=== PATIENT | male | born 1955 | race Caucasian/White ===

== ENCOUNTER 2021-09-14 16:53 | Inpatient (IN) | payer BC ==
[~2021-09-14] VITALS: Ht 160 cm; Wt 69.4 kg
[2021-09-14] MEDS: NACL 0.9% 1,000 ML IV SCH (02:00)
[2021-09-14 17:14] VITALS: BP_SYST 118
[2021-09-14 18:29] LABS: HEMATOCRIT 27.4 % (36-54); MEAN CORPUSCULAR HEMOGLOBIN 27 pg (27-31); MEAN CORPUSCULAR HGB CONC 33 % (32-36); MEAN CORPUSCULAR VOLUME 81 fL (79.0-98.0); PLATELET COUNT (AUTO) 513 K/uL (130-430); RED BLOOD CELL COUNT(AUTO) 3.39 MIL/uL (4.2-6.2); RED CELL DISTRIBUTION WIDTH 19.9 % (9.0-15.0); WHITE BLOOD COUNT (AUTO) 17.9 K/uL (4.8-10.8)
[2021-09-14 18:38] LABS: ANION GAP 9 (5-15); CALCIUM 8.2 mg/dL (8.4-11.0); CHLORIDE 96 mmol/L (98-107); CREATININE 0.83 mg/dL (0.55-1.30); GLUCOSE 134 mg/dL (70-99); SODIUM SERUM 132 mmol/L (136-145); UREA NITROGEN, BLOOD 15 mg/dL (8-21)
[2021-09-14 18:50] LABS: ALANINE AMINOTRANSFERASE 37 U/L (12-78); ALBUMIN 1.2 g/dL (3.4-4.8); ASPARTATE AMINOTRANSFERASE 50 U/L (10-37)
[2021-09-14 18:53] LABS: GFR AFRICAN AMERICAN 120 mL/min (>90)
[2021-09-14 19:16] LABS: BILIRUBIN,URINE NEGATIVE (NEGATIVE); BLOOD, URINE 1+ (NEGATIVE); COLOR,URINE YELLOW (YELLOW); GLUCOSE,URINE NEGATIVE (NEGATIVE); KETONES,URINE NEGATIVE (NEGATIVE); LEUKOCYTE ESTERASE ,URINE 1+ (NEGATIVE); NITRITE, URINE NEGATIVE (NEGATIVE); PROTEIN URINE NEGATIVE (NEGATIVE); UROBILINOGEN,URINE 0.2 (0.2-1.0)
[2021-09-14 19:18] LABS: CLARITY/URINE HAZY (CLEAR)
[2021-09-14 19:26] LABS: BACTERIA,URINE FEW /HPF (None Seen); RBC,URINE 0-3 /HPF (0-3)
[2021-09-14] MEDS ORDERED: PIPERACILLIN/TAZO 3.375 GM in NS 50 ML IV ONE ×2 (19:30→21:00)
[2021-09-14] MEDS ORDERED: KCL 20 mEq in 100 mL (PREMIX) 100 ML IV ONE (19:30)
[2021-09-14 19:35] LABS: TOTAL BILIRUBIN 0.3 mg/dL (0.0-1.0)
[2021-09-14] MEDS ORDERED: PIPERACILLIN/TAZOBACTAM 3.375 GM/VIAL (ZOSYN) IV ONE ×2 (19:57→19:59)
[2021-09-14] MEDS ORDERED: NACL 0.9% 1,000 ML IV ONE ×2 (20:30)
[2021-09-14] MEDS ORDERED: fentaNYL CITRATE/PF 100 MCG/2 ML AMP IVP ONE (20:45)
[2021-09-14 21:43] LABS: INR 1.1 (0.80-1.20); PROTHROMBIN TIME 11.5 SECS (9.5-12.5)
[2021-09-14] MEDS: D5/0.45 NS 1,000 ML IV SCH (22:10)
[2021-09-14 22:36] VITALS: BP_SYST 110
[2021-09-14 22:55] VITALS: BP_SYST 110
[2021-09-14 23:16] LABS: BAND % (MANUAL) 25 % (0-6); BASOPHILS % (MANUAL) 0 % (0-2); EOSINOPHILS % (MANUAL) 0 % (0-7); LYMPHOCYTES % (MANUAL) 1 % (20-46); MONOCYTES % (MANUAL) 2 % (0-11)
[2021-09-15] MEDS ORDERED: PIPERACILLIN/TAZO 3.375 GM in NS 50 ML IV SCH ×2
[2021-09-15] MEDS ORDERED: TRAM50TA2 PO (00:12)
[2021-09-15] MEDS ORDERED: HYDR-3927 PO (00:12)
[2021-09-15] MEDS: D5/0.45 NS 1,000 ML IV SCH (00:14)
[2021-09-15 00:17] VITALS: BP_SYST 127
[2021-09-15] MEDS ORDERED: DEXTROSE 50% JECT 50 ML DISP.SYRIN IVP PRN (02:45)
[2021-09-15] MEDS ORDERED: PIPERACILLIN/TAZOBACTAM 3.375 GM/VIAL (ZOSYN) IV ONE (02:51)
[2021-09-15 04:18] VITALS: BP_SYST 131
[2021-09-15] MEDS: NACL 0.9% 1,000 ML IV SCH ×2 (07:00→17:09)
[2021-09-15 07:10] LABS: BASOPHILS # (AUTO) 0.1 K/uL (0.0-0.2); BASOPHILS % (AUTO) 0.5 % (0.0-2.0); EOSINOPHILS % (AUTO) 0.1 % (0.0-4.0); HEMATOCRIT 29.1 % (36-54); HEMOGLOBIN 9.3 g/dL (14.0-18.0); LYMPHOCYTES # (AUTO) 0.6 K/uL (1.0-5.5); MEAN CORPUSCULAR HEMOGLOBIN 26 pg (27-31); MEAN CORPUSCULAR HGB CONC 32 % (32-36); MEAN CORPUSCULAR VOLUME 82 fL (79.0-98.0); MONOCYTES # (AUTO) 0.8 K/uL (0.0-1.0); NEUTROPHILS # (AUTO) 14.1 K/uL (1.8-7.7); NEUTROPHILS % (AUTO) 90.4 % (40.0-70.0); PLATELET COUNT (AUTO) 494 K/uL (130-430); RED BLOOD CELL COUNT(AUTO) 3.56 MIL/uL (4.2-6.2); RED CELL DISTRIBUTION WIDTH 21.3 % (9.0-15.0); WHITE BLOOD COUNT (AUTO) 15.6 K/uL (4.8-10.8)
[2021-09-15 07:55] VITALS: BP_SYST 121
[2021-09-15] MEDS: HYDROcodone/ACETAMIN 10-325 MG TAB PO PRN ×3 (08:12→23:14)
[2021-09-15 08:13] LABS: ALBUMIN 1.2 g/dL (3.4-4.8); CALCIUM 8.2 mg/dL (8.4-11.0); CREATININE 0.87 mg/dL (0.55-1.30); POTASSIUM 3.3 mmol/L (3.5-5.1); TOTAL BILIRUBIN 0.4 mg/dL (0.0-1.0)
[2021-09-15] MEDS: PIPERACILLIN/TAZO 3.375 GM in NS 50 ML IV SCH ×3 (08:14→20:58)
[2021-09-15 12:00] VITALS: BP_SYST 115
[2021-09-15] MEDS: INSULIN REGULAR, HUMAN 100 UNITS/ML, 10 ML VIAL (humuLIN R) SUBCUT PRN (12:21)
[2021-09-15 17:45] VITALS: BP_SYST 126
[2021-09-15 20:00] VITALS: BP_SYST 132
[2021-09-15 22:16] LABS: BILIRUBIN,URINE NEGATIVE (NEGATIVE); BLOOD, URINE 1+ (NEGATIVE); CLARITY/URINE SL CLOUDY (CLEAR); COLOR,URINE YELLOW (YELLOW); GLUCOSE,URINE NEGATIVE (NEGATIVE); KETONES,URINE NEGATIVE (NEGATIVE); LEUKOCYTE ESTERASE ,URINE 1+ (NEGATIVE); NITRITE, URINE NEGATIVE (NEGATIVE); PH,URINE 5.5 (5.0-8.0); PROTEIN URINE TRACE (NEGATIVE); UROBILINOGEN,URINE 0.2 (0.2-1.0)
[2021-09-15 22:23] LABS: BACTERIA,URINE FEW /HPF (None Seen)
[2021-09-16 00:37] VITALS: BP_SYST 136
[2021-09-16] MEDS: traMADol HCL HCL 50 MG TABLET (ULTRAM) PO PRN ×2 (02:24→23:56)
[2021-09-16] MEDS: NACL 0.9% 1,000 ML IV SCH ×2 (02:25→17:08)
[2021-09-16] MEDS: PIPERACILLIN/TAZO 3.375 GM in NS 50 ML IV SCH ×4 (02:31→21:52)
[2021-09-16 08:00] VITALS: BP_SYST 130
[2021-09-16] MEDS: HYDROcodone/ACETAMIN 10-325 MG TAB PO PRN ×2 (08:24→17:41)
[2021-09-16 08:29] LABS: ALBUMIN 1.2 g/dL (3.4-4.8); CALCIUM 7.4 mg/dL (8.4-11.0); CREATININE 0.92 mg/dL (0.55-1.30); POTASSIUM 3.8 mmol/L (3.5-5.1); TOTAL BILIRUBIN 0.5 mg/dL (0.0-1.0)
[2021-09-16] MEDS: ENOXAPARIN SODIUM 40 MG/0.4 ML SYRINGE SUBCUT SCH (08:29)
[2021-09-16 08:59] LABS: BASOPHILS # (AUTO) 0.1 K/uL (0.0-0.2); BASOPHILS % (AUTO) 0.3 % (0.0-2.0); EOSINOPHILS % (AUTO) 0.2 % (0.0-4.0); HEMATOCRIT 29.5 % (36-54); HEMOGLOBIN 9.8 g/dL (14.0-18.0); LYMPHOCYTES # (AUTO) 0.7 K/uL (1.0-5.5); LYMPHOCYTES % (AUTO) 3.6 % (20.5-51.5); MEAN CORPUSCULAR HEMOGLOBIN 27 pg (27-31); MEAN CORPUSCULAR HGB CONC 33 % (32-36); MEAN CORPUSCULAR VOLUME 83 fL (79.0-98.0); MONOCYTES # (AUTO) 0.8 K/uL (0.0-1.0); MONOCYTES % (AUTO) 4.4 % (1.7-9.3); PLATELET COUNT (AUTO) 450 K/uL (130-430); RED BLOOD CELL COUNT(AUTO) 3.58 MIL/uL (4.2-6.2); WHITE BLOOD COUNT (AUTO) 18.6 K/uL (4.8-10.8)
[2021-09-16 09:27] LABS: NEUTROPHILS % (AUTO) 91.5 % (40.0-70.0)
[2021-09-16 11:21] LABS: TOTAL IRON BIND. CAPACITY 115 ug/dL (250-450)
[2021-09-16] MEDS: INSULIN REGULAR, HUMAN 100 UNITS/ML, 10 ML VIAL (humuLIN R) SUBCUT PRN (12:03)
[2021-09-16 13:16] VITALS: BP_SYST 120
[2021-09-16 16:55] VITALS: BP_SYST 131
[2021-09-16 20:00] VITALS: BP_SYST 133
[2021-09-17] MEDS: HYDROcodone/ACETAMIN 10-325 MG TAB PO PRN ×4 (00:02→20:13)
[2021-09-17 00:20] VITALS: BP_SYST 133
[2021-09-17] MEDS: NACL 0.9% 1,000 ML IV SCH ×3 (03:00→15:54)
[2021-09-17] MEDS: PIPERACILLIN/TAZO 3.375 GM in NS 50 ML IV SCH ×4 (03:54→20:52)
[2021-09-17 07:51] VITALS: BP_SYST 126
[2021-09-17 08:02] LABS: BASOPHILS # (AUTO) 0.1 K/uL (0.0-0.2); BASOPHILS % (AUTO) 0.3 % (0.0-2.0); EOSINOPHILS % (AUTO) 0.1 % (0.0-4.0); HEMATOCRIT 27.8 % (36-54); HEMOGLOBIN 9.3 g/dL (14.0-18.0); LYMPHOCYTES # (AUTO) 0.5 K/uL (1.0-5.5); LYMPHOCYTES % (AUTO) 2.3 % (20.5-51.5); MEAN CORPUSCULAR HEMOGLOBIN 28 pg (27-31); MEAN CORPUSCULAR HGB CONC 33 % (32-36); MEAN CORPUSCULAR VOLUME 83 fL (79.0-98.0); MONOCYTES % (AUTO) 4.8 % (1.7-9.3); PLATELET COUNT (AUTO) 447 K/uL (130-430); RED BLOOD CELL COUNT(AUTO) 3.35 MIL/uL (4.2-6.2); RED CELL DISTRIBUTION WIDTH 23.5 % (9.0-15.0); WHITE BLOOD COUNT (AUTO) 20.6 K/uL (4.8-10.8)
[2021-09-17 08:06] LABS: FOLATE (FOLIC ACID) 6.2 ng/mL (>3.0)
[2021-09-17 08:38] LABS: NEUTROPHILS % (AUTO) 92.5 % (40.0-70.0)
[2021-09-17] MEDS: ENOXAPARIN SODIUM 40 MG/0.4 ML SYRINGE SUBCUT SCH (08:40)
[2021-09-17 09:02] LABS: C-REACTIVE PROTEIN QUANT 17.1 mg/dL (0-0.5); CALCIUM 7.5 mg/dL (8.4-11.0); CREATININE 0.85 mg/dL (0.55-1.30); POTASSIUM 3.3 mmol/L (3.5-5.1)
[2021-09-17] MEDS: traMADol HCL HCL 50 MG TABLET (ULTRAM) PO PRN ×2 (10:09→20:10)
[2021-09-17] MEDS ORDERED: POTASSIUM CHLORIDE 20 MEQ TAB.PRT.SR PO ONE (10:45)
[2021-09-17 11:21] VITALS: BP_SYST 121
[2021-09-17 11:32] LABS: ERYTHROCYTE SEDIMENTATION RATE 61 MM/HR (0-15)
[2021-09-17 15:24] VITALS: BP_SYST 130
[2021-09-17 19:00] VITALS: BP_SYST 130
[2021-09-17 20:00] VITALS: BP_SYST 140
[2021-09-18 00:40] VITALS: BP_SYST 133
[2021-09-18] MEDS: traMADol HCL HCL 50 MG TABLET (ULTRAM) PO PRN ×3 (02:39→21:24)
[2021-09-18] MEDS: HYDROcodone/ACETAMIN 10-325 MG TAB PO PRN ×3 (02:39→18:39)
[2021-09-18] MEDS: NACL 0.9% 1,000 ML IV SCH ×2 (02:40→14:58)
[2021-09-18] MEDS: PIPERACILLIN/TAZO 3.375 GM in NS 50 ML IV SCH ×4 (02:50→21:25)
[2021-09-18 06:49] LABS: BASOPHILS # (AUTO) 0.1 K/uL (0.0-0.2); BASOPHILS % (AUTO) 0.3 % (0.0-2.0); EOSINOPHILS % (AUTO) 0.1 % (0.0-4.0); HEMATOCRIT 28.5 % (36-54); HEMOGLOBIN 9.3 g/dL (14.0-18.0); LYMPHOCYTES # (AUTO) 0.4 K/uL (1.0-5.5); LYMPHOCYTES % (AUTO) 2.2 % (20.5-51.5); MEAN CORPUSCULAR HEMOGLOBIN 28 pg (27-31); MEAN CORPUSCULAR HGB CONC 33 % (32-36); MEAN CORPUSCULAR VOLUME 84 fL (79.0-98.0); MONOCYTES # (AUTO) 0.8 K/uL (0.0-1.0); MONOCYTES % (AUTO) 4.3 % (1.7-9.3); NEUTROPHILS # (AUTO) 18.3 K/uL (1.8-7.7); NEUTROPHILS % (AUTO) 93.1 % (40.0-70.0); PLATELET COUNT (AUTO) 440 K/uL (130-430); RED BLOOD CELL COUNT(AUTO) 3.39 MIL/uL (4.2-6.2); RED CELL DISTRIBUTION WIDTH 24.2 % (9.0-15.0); WHITE BLOOD COUNT (AUTO) 19.7 K/uL (4.8-10.8)
[2021-09-18 06:55] LABS: ALBUMIN 1.1 g/dL (3.4-4.8); POTASSIUM 3.8 mmol/L (3.5-5.1)
[2021-09-18 07:50] VITALS: BP_SYST 131
[2021-09-18 08:43] LABS: C-REACTIVE PROTEIN QUANT 20.1 mg/dL (0-0.5); CALCIUM 7.7 mg/dL (8.4-11.0); CREATININE 0.89 mg/dL (0.55-1.30); TOTAL BILIRUBIN 1.1 mg/dL (0.0-1.0)
[2021-09-18] MEDS: ENOXAPARIN SODIUM 40 MG/0.4 ML SYRINGE SUBCUT SCH (08:50)
[2021-09-18 09:06] LABS: ERYTHROCYTE SEDIMENTATION RATE 74 MM/HR (0-15)
[2021-09-18 11:22] VITALS: BP_SYST 122
[2021-09-18] MEDS: INSULIN REGULAR, HUMAN 100 UNITS/ML, 10 ML VIAL (humuLIN R) SUBCUT PRN (11:56)
[2021-09-18 15:23] VITALS: BP_SYST 122
[2021-09-18 20:10] VITALS: BP_SYST 148
[2021-09-19] VITALS: BP_SYST 135
[2021-09-19] MEDS: NACL 0.9% 1,000 ML IV SCH ×3 (00:40→21:07)
[2021-09-19] MEDS: HYDROcodone/ACETAMIN 10-325 MG TAB PO PRN ×3 (01:30→18:56)
[2021-09-19] MEDS: PIPERACILLIN/TAZO 3.375 GM in NS 50 ML IV SCH ×2 (03:19→09:35)
[2021-09-19] MEDS: traMADol HCL HCL 50 MG TABLET (ULTRAM) PO PRN (06:13)
[2021-09-19 08:00] VITALS: BP_SYST 134
[2021-09-19] MEDS: ENOXAPARIN SODIUM 40 MG/0.4 ML SYRINGE SUBCUT SCH (09:36)
[2021-09-19 11:31] VITALS: BP_SYST 146
[2021-09-19] MEDS: metroNIDAZOLE 500 MG TABLET PO SCH ×2 (13:02→21:07)
[2021-09-19 15:21] VITALS: BP_SYST 128
[2021-09-19 20:00] VITALS: BP_SYST 129
[2021-09-20 01:32] VITALS: BP_SYST 131
[2021-09-20] MEDS: HYDROcodone/ACETAMIN 10-325 MG TAB PO PRN ×4 (03:56→23:13)
[2021-09-20] MEDS: NACL 0.9% 1,000 ML IV SCH ×3 (05:52→21:24)
[2021-09-20] MEDS: metroNIDAZOLE 500 MG TABLET PO SCH ×3 (06:20→21:13)
[2021-09-20] MEDS: traMADol HCL HCL 50 MG TABLET (ULTRAM) PO PRN (07:54)
[2021-09-20 08:18] VITALS: BP_SYST 139
[2021-09-20] MEDS: ENOXAPARIN SODIUM 40 MG/0.4 ML SYRINGE SUBCUT SCH (08:50)
[2021-09-20 09:15] LABS: CREATININE 0.92 mg/dL (0.55-1.30); POTASSIUM 3.5 mmol/L (3.5-5.1)
[2021-09-20] MEDS: INSULIN REGULAR, HUMAN 100 UNITS/ML, 10 ML VIAL (humuLIN R) SUBCUT PRN ×2 (11:16→17:47)
[2021-09-20 12:22] VITALS: BP_SYST 134
[2021-09-20 16:13] VITALS: BP_SYST 130
[2021-09-20 20:00] VITALS: BP_SYST 145
[2021-09-20] MEDS: ACETAMINOPHEN 325 MG TABLET PO PRN (21:13)
[2021-09-21 01:10] VITALS: BP_SYST 160
[2021-09-21] MEDS ORDERED: MORPHINE 2 MG/ML INJ. SYRINGE IVP ONE (05:30)
[2021-09-21] MEDS: metroNIDAZOLE 500 MG TABLET PO SCH ×3 (06:00→20:40)
[2021-09-21] MEDS ORDERED: MORPHINE 2 MG/ML INJ. SYRINGE ONE (06:40)
[2021-09-21] MEDS: NACL 0.9% 1,000 ML IV SCH ×2 (07:42→20:40)
[2021-09-21 08:00] VITALS: BP_SYST 141
[2021-09-21] MEDS: ENOXAPARIN SODIUM 40 MG/0.4 ML SYRINGE SUBCUT SCH (08:52)
[2021-09-21] MEDS ORDERED: MEPERIDINE HCL/PF 25 MG/ML DISP.SYRIN ONE (10:06)
[2021-09-21 10:30] VITALS: BP_SYST 147
[2021-09-21] MEDS ORDERED: LIDOCAINE 1%, 20 ML MDV 20 ML ONE (11:22)
[2021-09-21] MEDS: MIDAZOLAM HCL 5 MG/5 ML VIAL ONE ×2 (11:24→11:38)
[2021-09-21 12:10] VITALS: BP_SYST 123
[2021-09-21] MEDS: HYDROcodone/ACETAMIN 10-325 MG TAB PO PRN ×2 (13:09→20:43)
[2021-09-21 14:33] LABS: CEA 19.8 ng/mL (0.0-4.7); FERRITIN 1456 ng/mL (30-400)
[2021-09-21 15:22] VITALS: BP_SYST 149
[2021-09-21 20:00] VITALS: BP_SYST 132
[2021-09-22 00:28] VITALS: BP_SYST 130
[2021-09-22] MEDS: HYDROcodone/ACETAMIN 10-325 MG TAB PO PRN ×3 (02:51→20:24)
[2021-09-22 04:00] VITALS: BP_SYST 134
[2021-09-22] MEDS: metroNIDAZOLE 500 MG TABLET PO SCH ×2 (05:46→14:52)
[2021-09-22 08:00] VITALS: BP_SYST 147
[2021-09-22] MEDS: ENOXAPARIN SODIUM 40 MG/0.4 ML SYRINGE SUBCUT SCH (09:21)
[2021-09-22] MEDS: NACL 0.9% 1,000 ML IV SCH (09:22)
[2021-09-22 12:27] VITALS: BP_SYST 129
[2021-09-22] MEDS: INSULIN REGULAR, HUMAN 100 UNITS/ML, 10 ML VIAL (humuLIN R) SUBCUT PRN ×2 (12:27→18:47)
[2021-09-22 13:40] LABS: BASOPHILS % (AUTO) 0.2 % (0.0-2.0); EOSINOPHILS % (AUTO) 0.1 % (0.0-4.0); HEMOGLOBIN 8.9 g/dL (14.0-18.0); LYMPHOCYTES # (AUTO) 0.3 K/uL (1.0-5.5); LYMPHOCYTES % (AUTO) 1.6 % (20.5-51.5); MEAN CORPUSCULAR HEMOGLOBIN 28 pg (27-31); MEAN CORPUSCULAR HGB CONC 33 % (32-36); MEAN CORPUSCULAR VOLUME 84 fL (79.0-98.0); MONOCYTES # (AUTO) 0.6 K/uL (0.0-1.0); MONOCYTES % (AUTO) 3.1 % (1.7-9.3); PLATELET COUNT (AUTO) 261 K/uL (130-430); RED BLOOD CELL COUNT(AUTO) 3.22 MIL/uL (4.2-6.2); RED CELL DISTRIBUTION WIDTH 26.2 % (9.0-15.0); WHITE BLOOD COUNT (AUTO) 18.9 K/uL (4.8-10.8)
[2021-09-22 13:55] LABS: CALCIUM 8.3 mg/dL (8.4-11.0); CREATININE 0.89 mg/dL (0.55-1.30); POTASSIUM 3.2 mmol/L (3.5-5.1)
[2021-09-22 14:00] LABS: TOTAL BILIRUBIN 2.9 mg/dL (0.0-1.0)
[2021-09-22] MEDS: ACETAMINOPHEN 325 MG TABLET PO PRN (14:52)
[2021-09-22 16:47] VITALS: BP_SYST 123
[2021-09-22] MEDS ORDERED: LEVO500T90 PO (17:26)
[2021-09-22] MEDS ORDERED: POTASSIUM CHLORIDE 20 MEQ TAB.PRT.SR PO ONE (20:30)
[2021-09-22 20:36] VITALS: BP_SYST 123
== END 2021-09-22 21:50 | DRG 871 ==
LOC: SED 16:53 → STU 20:56 → SMU 09-22 16:11
PROVIDERS: ADMIT Internal Medicine Hospice and Palliative Medicine; ATTEND Internal Medicine Hospice and Palliative Medicine
PROC: 0T903ZZ Drainage of Right Kidney, Percutaneous Approach (ICD-10-PCS; principal; 2021-09-21 10:30)
DX: A41.9 Sepsis, unspecified organism (principal); E43 Unspecified severe protein-calorie malnutrition; C18.9 Malignant neoplasm of colon, unspecified; C79.9 Secondary malignant neoplasm of unspecified site; N13.1 Hydronephrosis with ureteral stricture, not elsewhere classified; J44.9 Chronic obstructive pulmonary disease, unspecified; D64.9 Anemia, unspecified; D75.839 Thrombocytosis, unspecified; E88.09 Other disorders of plasma-protein metabolism, not elsewhere classified; E83.51 Hypocalcemia; E83.52 Hypercalcemia; E87.6 Hypokalemia; E11.65 Type 2 diabetes mellitus with hyperglycemia; Z20.822 Contact with and (suspected) exposure to COVID-19; Z74.01 Bed confinement status; Z79.01 Long term (current) use of anticoagulants; Z85.038 Personal history of other malignant neoplasm of large intestine; Z93.3 Colostomy status; Z68.27 Body mass index [BMI] 27.0-27.9, adult
CPT/HCPCS: 36415; 50432; 71045; 76376; 77012; 80048; 80053; 81000; 82272; 82378; 82550; 82607; 82728; 82746; 82962; 83540; 83550; 83605; 83880; 84484; 85007; 85025; 85027; 85610-TC; 85651-TC; 85730-TC; 86140; 87040; 87081; 87086; 96374; 96375; 97110-GP; 97116-GP; 97163-GP; 97530-GP; 99291; C1750; G0378; J0696; J1650; J1815; J2001; J2175; J2250; J2270; J2543; J3010; J3480; J7060